=== PATIENT | female | born 1990 | race Caucasian/White ===

== ENCOUNTER 2017-08-09 16:35 | Emergency (ER) | payer OTHER ==
[~2017-08-09] VITALS: Ht 147.3 cm; Wt 52.1 kg
[2017-08-09 16:48] VITALS: TEMP 37.1; Ht 147.3 cm; Wt 52.1 kg
--- NOTE | 2017-08-09 17:09 | EMERGENCY ROOM VISIT NOTE ---
ED Visit Note First contact with patient: 16:55 CHIEF COMPLAINT: Left wrist injury HISTORY OF PRESENT ILLNESS: This 26-year-old female presents to the emergency department complaining of pain in the left wrist after an injury last night. The patient tripped on the stairs and tried to catch herself with an outstretched hand. She has taken ibuprofen with minimal relief. She is right- handed. She denies any other injuries. She denies any numbness or tingling into the hand. Pain is worse with any movement. REVIEW OF SYSTEMS: A 6 system review of systems was completed with positives and pertinent negatives listed in the HPI. ALLERGIES: No known drug allergies MEDICATIONS: Reviewed PMH: Otherwise healthy SOCIAL HISTORY: She does not smoke, occasional alcohol use. She is a [employer] student PHYSICAL EXAM: VITALS: Vitals are noted on the nurse's note and reviewed by myself. Vital signs stable. GENERAL: 26-year-old female, in no acute distress, nondiaphoretic, well- developed well-nourished. The left wrist is significantly ecchymotic over the distal radius and ulna. Limited flexion and extension. Radial pulse +2. Capillary refill to fingers is less than 2 seconds. Sensation in the fingers is intact. Difficulty with fingers to thumb opposition. No tenderness over the proximal ulna or radius. Full range of motion of the elbow. EMERGENCY DEPARTMENT COURSE: I examined the patient. X-rays of the left wrist/ navicular were reviewed IMPRESSION: 1. Mild cortical irregularity of the dorsal aspect distal radial metaphysis suggests physeal scar or subtle acute nondisplaced fracture. Additionally, there is a subtle, ill-defined longitudinally oriented lucency of the lateral aspect distal radial metaphysis suspicious for acute nondisplaced fracture. 2. Mild to moderate associated soft tissue swelling. 3. No evidence of acute scaphoid fracture. The above report was generated using voice recognition software. It may contain grammatical, syntax or spelling errors. Electronically signed by: Shane Jung M.D. 08/09/2017 5:20 PM Dictated Date/Time: 08/09/2017 5:16 PM The status of this report is Signed. Draft = Not yet reviewed or approved by Radiologist. Signed = Reviewed and approved by Radiologist. <AttendingPhy></AttendingPhy> <FamilyPhy></FamilyPhy> <PrimaryPhy></PrimaryPhy> <UnitNumber>[id number]</UnitNumber> <VisitNumber>[id number]</VisitNumber> < PatientName>DOMINICK SINGH</PatientName> <DateOfBirth>1990</ DateOfBirth> <Location>[facility]</Location> <ServiceDate>08/09/17</ServiceDate> <MNE >ESINDI</MNE> <OrderingPhy>ED, PROTOCOL</OrderingPhy> <OrderingPhyMNE>f rep ord dr lorenzana</OrderingPhyMNE> <DictatingPhyMNE>f rep dict dr lorenzana</DictatingPhyMNE> < CCListMNE>f rep ct harriett</CCListMNE> <AdmittingPhyMNE>f pt admit dr lorenzana</ AdmittingPhyMNE> <AttendingPhyMNE>f pt attend dr lorenzana</AttendingPhyMNE> <ConsultingPhyMNE>f pt consult dr lorenzana</ConsultingPhyMNE> <FamilyPhyMNE>f pt fam dr lorenzana</FamilyPhyMNE> <OtherPhyMNE>f pt other dr lorenzana</OtherPhyMNE> < PrimaryPhyMNE>f pt prim care dr lorenzana</PrimaryPhyMNE> <ReferringPhyMNE>f pt referring dr lorenzana</ReferringPhyMNE> These findings were discussed with the patient at length. She voiced understanding. She was put in a volar splint. Discharge instructions were reviewed, and she was discharged in good condition DIAGNOSIS: Left distal radius fracture TREATMENT and DISCHARGE INSTRUCTIONS: Please elevate the left wrist as much as possible. Apply ice for 20 minute intervals at a time over the next 48 hours. Please keep the splint in place. Please do not get it wet. Please call the orthopedic doctor tomorrow morning for a follow-up appointment. Ibuprofen 800 mg and/or Tylenol 1000 mg every 8 hours. You may also alternate these medications for more effective pain relief: Ibuprofen --4 HRS--> Tylenol --4 HRS--> ibuprofen --4 HRS--> Tylenol .... Please do not hesitate to return to the emergency department with any new, worsening or concerning symptoms It was a pleasure participating in your care This chart was completed in part utilizing [employer] Voice Recognition software. Attempts were made to minimize the grammatical errors, random word insertions, pronoun errors and incomplete sentences. Any formal questions or concerns about the content, text or information contained within the body of this dictation should be directly addressed to the provider for clarification.
--- NOTE | 2017-08-09 17:22 | DIAGNOSTIC IMAGING REPORT ---
L WRIST W/NAVICULAR MIN 3 VIEWS HISTORY: 26 years-old Female R/O fx left wrist, pain following fall acute left wrist and distal forearm pain status post fall COMPARISON: None available TECHNIQUE: 4 views of the left wrist with navicular view for a total of 5 images FINDINGS: There is mild cortical irregularity of the distal radial metaphysis dorsally seen only on the external rotation oblique view. Additionally, there is a subtle ill-defined linear lucency of the lateral aspect distal radial metaphysis seen on the AP internal rotation and lateral views. Mild to moderate soft tissue swelling of the distal forearm and wrist. The scaphoid appears intact. No dislocation. IMPRESSION: 1. Mild cortical irregularity of the dorsal aspect distal radial metaphysis suggests physeal scar or subtle acute nondisplaced fracture. Additionally, there is a subtle, ill-defined longitudinally oriented lucency of the lateral aspect distal radial metaphysis suspicious for acute nondisplaced fracture. 2. Mild to moderate associated soft tissue swelling. 3. No evidence of acute scaphoid fracture. The above report was generated using voice recognition software. It may contain grammatical, syntax or spelling errors. Electronically signed by: Shane Jung M.D. 08/09/2017 5:20 PM Dictated Date/Time: 08/09/2017 5:16 PM
[2017-08-09 18:14] VITALS: BP 136/89; PULSE 84; O2SAT 97
== END 2017-08-09 18:14 | disposition home or self-care (01) ==
LOC: C.EDB 16:36 → C.EDD 18:14
DX: S52.502A Unspecified fracture of the lower end of left radius, initial encounter for closed fracture (principal); W10.9XXA Fall (on) (from) unspecified stairs and steps, initial encounter